=== PATIENT | female | born 1990 | race African-American/Black ===

== ENCOUNTER 2020-02-18 18:12 | Emergency (ER) | payer OTHER ==
[~2020-02-18] VITALS: Ht 175.3 cm; Wt 120.2 kg
[~2020-02-18 18:12] MED LIST: ACETAMINOPHEN-1 EAC1 PO; NOHOMEMEDICATIONS; ONDANSETRON HCL4 M2 PO
[2020-02-18 18:56] LABS: ABSOLUTE NEUTROPHILS 8.8 thou/uL (1.4-8.2); BASOPHILS 0.5 % (0.0-2.0); EOSINOPHILS 1.1 % (0.0-3.0); HEMATOCRIT 35.9 % (37.0-47.0); HEMOGLOBIN 11.9 gm/dL (12.0-15.0); LYMPHOCYTES 14.2 % (24.0-44.0); MCH 26.2 pg (26.0-34.0); MCHC 33.2 g/dL (28.0-37.0); MCV 78.8 fL (80.0-100.0); MONOCYTES 4.2 % (1.0-8.0); PLATELET COUNT 362 thou/uL (150-400); RBC 4.55 mil/uL (4.20-5.00); RDW 15.2 % (10.5-14.5)
[2020-02-18 19:02] LABS: CALCIUM 9.1 mg/dL (8.5-10.1); CREATININE 0.9 mg/dL (0.6-1.0); POTASSIUM 3.7 mmol/L (3.5-5.1)
[2020-02-18 19:09] LABS: ALBUMIN 3.4 g/dL (3.4-5.0); TOTAL BILIRUBIN 0.4 mg/dL (0.2-1.0); TOTAL PROTEIN 7.5 g/dL (6.4-8.2)
[2020-02-18] MEDS ORDERED: ZOFRAN ODT4 MG PO (19:54)
[2020-02-18] MEDS ORDERED: NORCO 5-325 TA1 EAC1 PO (19:54)
[2020-02-18] MEDS ORDERED: BACTRIM DS TAB1 EACH PO (19:55)
[2020-02-18 21:21] VITALS: BP 120/64
== END 2020-02-18 21:22 | disposition home or self-care (01) ==
LOC: ER 18:12
PROVIDERS: Nurse Practitioner Family
DX: N61.1 Abscess of the breast and nipple (principal); R51 Headache; R11.2 Nausea with vomiting, unspecified; F17.210 Nicotine dependence, cigarettes, uncomplicated; Z88.0 Allergy status to penicillin; Z79.899 Other long term (current) drug therapy